=== PATIENT | female | born 1990 ===

== ENCOUNTER → 2018-03-07 11:07 | Outpatient (CLI) | payer OTHER, SELFPAY | PROVIDERS: Visit Provider Family Medicine | DX: Z00.00 Encounter for general adult medical examination without abnormal findings (principal); Z51.81 Encounter for therapeutic drug level monitoring; Z87.42 Personal history of other diseases of the female genital tract | CPT/HCPCS: 87070; 87077; 87147; 87205 ==

== ENCOUNTER 2019-08-05 09:51 | Emergency (ER) | payer OTHER, SELFPAY ==
[2019-08-05 10:02] VITALS: BP 122/89; PULSE 88; RESP 17; TEMP 36.9; O2SAT 99; BMI 23.3
--- NOTE | 2019-08-05 11:10 | ED.UPPEXIN ---
HPI - Extremity Injury (Upper) <ANDRES Louis - Last Filed: 08/05/19 21:34> General Chief Complaint: Extremity Injury, Upper Stated Complaint: Chopped patial of Left pinky finger off Time Seen by Provider: 08/05/19 10:32 Mode of arrival: Family Vehicle Limitations: no limitations History of Present Illness HPI narrative: 29-year-old female presents emergency department today complaining of a laceration to her left 5th finger. She states this happened a about an hour ago today while she was slicing onions the knife slipped and lacerated the tip of her 5th finger. She states her last Tdap was in December. Bleeding controlled with compression. She denies any difficulty moving finger, numbness, tingling, dizziness, syncope, redness, pus, nausea, vomiting, diarrhea, or other concerns. Related Data Previous Rx's Medication Instructions Recorded oxaprozin 600 mg tablet 600 mg PO BID #60 tab 03/06/19 buspirone 15 mg tablet 15 mg PO BID #60 tab 06/08/19 gabapentin 300 mg capsule 300 mg PO BID #60 cap 06/12/19 alprazolam 0.5 mg tablet 0.5 mg PO BID PRN #90 tab 07/24/19 cyclobenzaprine 10 mg tablet 10 mg PO TID PRN #30 tab 08/06/19 Allergies Allergy/AdvReac Type Severity Reaction Status Date / Time No Known Drug Allergies Allergy Verified 08/05/19 10:07 Review of Systems <ANDRES Louis - Last Filed: 08/05/19 21:34> Review of Systems Narrative: REVIEW OF SYSTEMS: GENERAL: Denies fever or chills. HENT: Denies head trauma. EYE: Denies double vision or vision loss. CARDIOVASCULAR: Denies syncope. MUSCULOSKELETAL: Denies weakness, or deformities. INTEGUMENTARY: Complains of laceration, see HPI. NEURO: Denies numbness or tingling. Patient History <ANDRES Louis - Last Filed: 08/05/19 21:34> Medical History Anxiety (Chronic Unknown) Back pain (Resolved Unknown) OCD (obsessive compulsive disorder) (Chronic Unknown) Pyelonephritis (Resolved 11/2014) Surgical History Hx of tonsillectomy (Resolved Unknown) Social History Smoking Status: Never smoker alcohol intake frequency: 0-2 drinks per day Substance Use Type: does not use Exam <ANDRES Louis - Last Filed: 08/05/19 21:34> Narrative Exam Narrative: PHYSICAL EXAMINATION: GENERAL: Well groomed, alert, and cooperative. Answers questions promptly and appropriately. Vital signs noted. HENT: Normocephalic, atraumatic. RESPIRATORY: Normal respiratory rate, trachea midline, airway patent. No stridor, nasal flaring or accessory muscle use. MUSCULOSKELETAL: Full range of motion of 5th finger against resistance. Full range of motion of left hand. Normal gait and coordination. Equal tone and mass bilaterally. EXTREMITIES: CMS intact. Moves all extremities. SKIN: Warm, dry, soft, appropriate color for ethnicity. 1.5cm laceration to top of left 5th finger. Wound bed without foreign body. Bleeding controlled. No surrounding erythema. NEURO: Alert and Oriented X 3. Good coordination. PSYCH: Appropriate affect and mood. Initial Vital Signs Initial Vital Signs: Vital Signs Temperature 98.4 F 08/05/19 10:02 Pulse Rate 88 08/05/19 10:02 Respiratory Rate 17 08/05/19 10:02 Blood Pressure 122/89 08/05/19 10:02 Pulse Oximetry 99 08/05/19 10:02 <Jordyn Holland DO - Last Filed: 08/09/19 18:28> Initial Vital Signs Initial Vital Signs: Vital Signs Temperature 98.4 F 08/05/19 10:02 Pulse Rate 88 08/05/19 10:02 Respiratory Rate 17 08/05/19 10:02 Blood Pressure 122/89 08/05/19 10:02 Pulse Oximetry 99 08/05/19 10:02 Procedures <ANDRES Louis - Last Filed: 08/05/19 21:34> Laceration Repair Laceration 1: Site: upper extremity Side (If applicable): left Size (cm): 1.5 Description: linear Depth: simple, single layer Skin layer closed with: dermabond Course <ANDRES Louis - Last Filed: 08/05/19 21:34> Course Course Narrative: Patient's wound was irrigated and glued, patient was given a bandage to dress the area as well. Vital Signs Vital signs: Vital Signs - 8 hr 08/05/19 10:02 Temperature 98.4 F Pulse Rate 88 Respiratory Rate 17 Blood Pressure 122/89 Pulse Oximetry 99 <Jordyn Holland DO - Last Filed: 08/09/19 18:28> Vital Signs Vital signs: Vital Signs - 8 hr 08/05/19 10:02 Temperature 98.4 F Pulse Rate 88 Respiratory Rate 17 Blood Pressure 122/89 Pulse Oximetry 99 MDM - Extremity Injury (Upper) <Karen ANDRES Yun - Last Filed: 08/05/19 21:34> Medical Records Attestation: I reviewed the patient's medical records. Lab Data Attestation: I reviewed the patient's lab results. MDM Narrative Medical decision making narrative: Simple laceration with irrigation and repair using Dermabond. Patient was instructed to watch for signs of infection and follow up if any of these occur. She was discouraged from soaking her hand in water or applying any bacitracin to the area. No concern for tendon injury as patient has full range of motion against resistance and laceration was at the tip of finger. Discharge Plan Departure Patient Disposition: Home Clinical Impression: Laceration Discharge Date/Time: 08/05/19 11:33 Instructions: DI for Laceration Repair -- Finger Activity Restrictions/Additional Instructions: Thank you for entrusting me with your care today. As discussed, your laceration was repaired with glue. Please do not immerse your finger in water for the next 3 days. Do not apply any Neosporin to the area. The glue will flank off on its own, do not pulled at the glue. Please monitor your finger for signs of infection such as increased redness, pus, increased swelling---if these symptoms occur please be seen immediately. ED/Return precautions given for new or worsening symptoms. Prescriptions: No Action oxaprozin [Daypro] 600 mg tablet 600 mg PO BID Qty: 60 RF: 3 gabapentin 300 mg capsule 300 mg PO BID Qty: 60 RF: 3 alprazolam [Xanax] 0.5 mg tablet 0.5 mg PO BID PRN (Reason: anxiety) Qty: 90 RF: 0 cyclobenzaprine 10 mg tablet 10 mg PO TID PRN (Reason: muscle spasm) Qty: 30 RF: 0 buspirone 15 mg tablet 15 mg PO BID Qty: 60 RF: 2 Referrals: Rosalind Fortune DO [Primary Care Provider] -
[2019-08-05 11:32] VITALS: BP 130/83; PULSE 87; RESP 17; O2SAT 98
== END 2019-08-05 11:33 | disposition home or self-care (01) ==
PROVIDERS: Emergency Provider Nurse Practitioner; PCP Family Medicine
DX: S61.217A Laceration without foreign body of left little finger without damage to nail, initial encounter (principal); W26.0XXA Contact with knife, initial encounter
CPT/HCPCS: 99282

== ENCOUNTER → 2019-11-23 13:58 | Outpatient (CLI) | payer OTHER, SELFPAY ==
[2019-11-23 15:21] LABS: Alanine Aminotransferase 15 IU/L (<35); Albumin 4.8 g/dL (3.5-5.0); Albumin Globulin Ratio 1.5 (1.0-2.8); Alkaline Phosphatase 51 U/L (38-126); Aspartate Aminotransferase 28 IU/L (14-36); BUN Creatinine Ratio 21.3 (6-22); Bilirubin Total 0.2 mg/dL (0.2-1.3); Blood Urea Nitrogen 17 mg/dL (7-17); Calcium 10.2 mg/dL (8.4-10.2); Carbon Dioxide 29 mmol/L (22-32); Chloride 102 mmol/L (98-107); Cholesterol 232 mg/dL (140-199); Estimated Glomerular Filt Rate > 60.0 mL/min (>60); Globulin 3.1 g/dL (1.7-4.1); Glucose 85 mg/dL (70-100); HDL Cholesterol 70 mg/dL (40-60); HEMOLYSIS < 15 (0-50); LDL Cholesterol Calculated 145 mg/dL (<100); Potassium 5.1 mmol/L (3.4-5.1); Sodium 139 mmol/L (137-145); Total Protein 7.9 g/dL (6.3-8.2); Triglycerides 86 mg/dL (35-150)
[2019-11-23 15:50] LABS: TSH w/ Reflex to FT4 3.01 uIU/mL (0.47-4.68)
[2019-11-23 16:09] LABS: Vitamin B12 503 pg/mL (239-931)
[2019-11-23 16:59] LABS: Vitamin D 25 Hydroxy (D3) 44.9 ng/mL (30.0-100.0)
== END ==
PROVIDERS: PCP Student in an Organized Health Care Education/Training Program; Referring Provider Student in an Organized Health Care Education/Training Program; Visit Provider Student in an Organized Health Care Education/Training Program
DX: Z13.220 Encounter for screening for lipoid disorders (principal); E55.9 Vitamin D deficiency, unspecified; F41.9 Anxiety disorder, unspecified; R63.5 Abnormal weight gain; G62.9 Polyneuropathy, unspecified; Z79.1 Long term (current) use of non-steroidal anti-inflammatories (NSAID); Z79.899 Other long term (current) drug therapy
CPT/HCPCS: 36415; 80053; 80061; 82306; 82607; 84443